=== PATIENT | female | born 1945 | race Caucasian/White ===

== ENCOUNTER 2017-06-28 18:09 | Emergency (ER) | payer BC ==
[~2017-06-28] VITALS: Ht 165.1 cm; Wt 131.5 kg
[~2017-06-28 18:09] MED LIST: AMLO10TA2 PO; ASPI-612 PO; CALC1TAB75 PO; CARV25TA2 PO; CHOL10002 PO; FAMO20TA38 PO; LEVO137T2 PO; LOSA100T6 PO; METF-620 PO; MULT-18 PO; PRAV20TA2 PO; PRAV40TA2 PO
[2017-06-28 18:25] VITALS: BP 143/75
[2017-06-28 19:39] LABS: BASO % 0 % (0-3); EOS % 5 % (0-3); HEMATOCRIT 36.8 % (36.0-47.0); HEMOGLOBIN 12.3 g/dL (12.0-15.5); LYMPH # 1.4 x10^3/uL (1.0-4.8); LYMPH % 21 % (24-48); MEAN CORPUSCULAR HEMOGLOBIN 29 pg (25-35); MEAN CORPUSCULAR HGB CONC 33 g/dL (31-37); MEAN CORPUSCULAR VOLUME 87 fL (79-100); MONO % 8 % (0-9); NEUT % 65 % (31-73); PLATELET COUNT 245 x10^3/uL (140-400); RED BLOOD COUNT 4.26 x10^6/uL (3.50-5.40); RED CELL DISTRIBUTION WIDTH 14.6 % (11.5-14.5); WHITE BLOOD COUNT 6.7 x10^3/uL (4.0-11.0)
[2017-06-28 20:24] LABS: CALCIUM 8.7 mg/dL (8.5-10.1); CREATININE 1.2 mg/dL (0.6-1.0); GFR 44.4; POTASSIUM 3.9 mmol/L (3.5-5.1)
--- NOTE | 2017-06-28 21:50 | ED.ADGEN ---
Past Medical History Past Medical History: Diabetes-Type II, GERD, High Cholesterol, Hypertension, Hypothyroid Additional Past Medical Histor: adrenal tumor Past Surgical History: Appendectomy, Cholecystectomy, Tonsillectomy Additional Past Surgical Histo: hemmorhoidectomy, Alcohol Use: None Drug Use: None Adult General Chief Complaint Chief Complaint: SHORTNESS OF BREATH HPI HPI Patient is a 71 year old woman, history of COPD, hypertension, diabetes, who presents to the emergency department with a complaint of shortness breath. Patient seen by her primary care provider today, at that time she had a 6 on a walk test which she failed. She was given a prescription for an outpatient chest x-ray, which she did not obtain today, patient states she misunderstood the instructions her primary care provider. She states that she was told to have oxygen set up at home at some point soon, but is not currently have any oxygen at home. She states that she was feeling very tired earlier today, did take a nap and is now feeling better. Denies any chest pain, states she is having no shortness breath at rest, states she has a cough is nonproductive occasionally, denies any focal weakness, numbness, tingling, swelling extremities, injuries or other complaints. I did speak with Dr. Shah, who was on-call for the patient's primary care provider, Dr. Simmons. Per records, patient had oxygen saturations dropped to 65 % during ambulatory trial in the office today. Review of Systems Review of Systems Constitutional: Denies fever or chills. [] Eyes: Denies change in visual acuity. [] HENT: Denies nasal congestion or sore throat. [] Respiratory: Denies cough, complaining of shortness of breath. Cardiovascular: Denies chest pain or edema. [] GI: Denies abdominal pain, nausea, vomiting, bloody stools or diarrhea. [] : Denies dysuria. [] Musculoskeletal: Denies back pain or joint pain. [] Integument: Denies rash. [] Neurologic: Denies headache, focal weakness or sensory changes. [] Endocrine: Denies polyuria or polydipsia. [] Lymphatic: Denies swollen glands. [] Psychiatric: Denies depression or anxiety. [] Allergies Allergies Allergies Coded Allergies Type Severity Reaction Last Updated Verified codeine Allergy Mild Nausea and Vomiting 08/04/14 No Physical Exam Physical Exam Constitutional: Well developed, well nourished, no acute distress, non-toxic appearance. [] HENT: Normocephalic, atraumatic, bilateral external ears normal, oropharynx moist, no oral exudates, nose normal. [] Eyes: PERRLA, EOMI, conjunctiva normal, no discharge. [] Neck: Normal range of motion, no tenderness, supple, no stridor. [] Cardiovascular:Heart rate regular rhythm, no murmur, S1, S2, rubs or gallops. [] Lungs & Thorax: Diminished breath sounds at bases bilaterally, no rhonchi or rales identified. No chest wall crepitus or tenderness. Abdomen: Bowel sounds normal, soft, obese, no tenderness, no masses, no pulsatile masses. [] Skin: Warm, dry, no erythema, no rash. [] Back: No tenderness, no CVA tenderness. [] Extremities: No tenderness, no cyanosis, no clubbing, ROM intact, no edema. Negative Homans sign. [] Neurologic: Alert and oriented X 3, normal motor function, normal sensory function, no focal deficits noted. [] Psychologic: Affect normal, judgement normal, mood normal. [] Current Patient Data Vital Signs Vital Signs Date Time Temp Pulse Resp B/P (MAP) Pulse Ox O2 Delivery O2 Flow Rate FiO2 06/28/17 18:25 97.9 71 20 143/75 (97) 97 Room Air 97.9 Lab Values Laboratory Tests Test 06/28/17 19:17 White Blood Count 6.7 x10^3/uL (4.0-11.0) Red Blood Count 4.26 x10^6/uL (3.50-5.40) Hemoglobin 12.3 g/dL (12.0-15.5) Hematocrit 36.8 % (36.0-47.0) Mean Corpuscular Volume 87 fL (79-100) Mean Corpuscular Hemoglobin 29 pg (25-35) Mean Corpuscular Hemoglobin Concent 33 g/dL (31-37) Red Cell Distribution Width 14.6 % (11.5-14.5) H Platelet Count 245 x10^3/uL (140-400) Neutrophils (%) (Auto) 65 % (31-73) Lymphocytes (%) (Auto) 21 % (24-48) L Monocytes (%) (Auto) 8 % (0-9) Eosinophils (%) (Auto) 5 % (0-3) H Basophils (%) (Auto) 0 % (0-3) Neutrophils # (Auto) 4.4 x10^3uL (1.8-7.7) Lymphocytes # (Auto) 1.4 x10^3/uL (1.0-4.8) Monocytes # (Auto) 0.6 x10^3/uL (0.0-1.1) Eosinophils # (Auto) 0.3 x10^3/uL (0.0-0.7) Basophils # (Auto) 0.0 x10^3/uL (0.0-0.2) Sodium Level 137 mmol/L (136-145) Potassium Level 3.9 mmol/L (3.5-5.1) Chloride Level 101 mmol/L (98-107) Carbon Dioxide Level 26 mmol/L (21-32) Anion Gap 10 (6-14) Blood Urea Nitrogen 18 mg/dL (7-20) Creatinine 1.2 mg/dL (0.6-1.0) H Estimated GFR (Cockcroft-Gault) 44.4 Glucose Level 109 mg/dL (70-99) H Calcium Level 8.7 mg/dL (8.5-10.1) Troponin I Quantitative < 0.017 ng/mL (0.000-0.055) LG-Vja-H-Type Natriuretic Peptide 62 pg/mL (0-124) Laboratory Tests 06/28/17 19:17 Laboratory Tests 06/28/17 19:17 EKG EKG EC: Sinus rhythm, heart rate 70 beats/minute, upright axis, QTC of 411, RI 186, QRS of 88, no ST elevations or depressions, no evidence of acute ST abnormalities. As interpreted by me. [] Radiology/Procedures Radiology/Procedures Chest x-ray: PA and lateral: 2 view, patient with mild hyperinflation noted consistent with history of COPD, some tortuosity of the aorta with calcification , normal cardiac silhouette, no infiltrates, no effusions, pneumothorax, no bony abnormalities. As interpreted by me. Course & Med Decision Making Course & Med Decision Making Pertinent Labs and Imaging studies reviewed. (See chart for details) Patient received laboratory studies and imaging in the ED, no acutely concerning findings identified on x-ray, laboratory studies are reveal a concerning findings. However, during attempted ambulatory trial in the ED, patient became short of breath, and stopped the trial orally, oxygen saturation at that point was at around 92%. Patient had ambulated more than 50 feet at that point, which is improved from her previous trial, patient was not able to tolerate even 3 minutes of ambulation. I did discuss with patient that concerns for shortness of breath, and lack of supple oxygen at home or concerns, that she could go home become hypoxic and have an adverse event. Patient stated that she did understand. She was seen by Dr. Woodson of internal medicine in the emergency department, for admission, patient states that she is not able to stay because she has responsibilities at home taking care of her animals. Concerns for the patient's well-being were discussed by Dr. Woodson, myself and nurse Elizabeth. Patient states that she understands the risks of going home, and that she could have episodes of hypoxia, could result in significant morbidity or mortality, however she states she is unable to stay at this time, will follow up with her primary care provider, and states that there arranges being made for her to obtain home O2. After discussion at bedside, patient did sign AGAINST MEDICAL ADVICE, she is awake alert and oriented 3, and does have family at bedside with her. Expressed the patient that she is welcome to return at any time for additional evaluation, encouraged to follow-up as discussed. Dragon Disclaimer Dragon Disclaimer This electronic medical record was generated, in whole or in part, using a voice recognition dictation system. Departure Impression: Primary Impression: Shortness of breath Additional Impression: Hypoxia Disposition: 07 AGAINST MEDICAL ADVICE Condition: STABLE Problem Qualifiers FABY MATIAS DO Jun 28, 2017 21:50
--- NOTE | 2017-06-29 06:16 | EKG ---
[facility] [address] [place] [address] Test Date: 2017-06-28 Test Time: 19:18:02 Pat Name: ROLDAN SCOTT Department: Room: Gender: F Oil Rigger: : [id number] Requested By: FABY MATIAS Order Number: [id number] Reading MD: Measurements Intervals [place] Rate: 70 P: 40 IA: 186 QRS: 13 QRSD: 88 T: 33 QT: 378 QTc: 411 Interpretive Statements SINUS RHYTHM NORMAL ECG RI6.01 No previous ECG available for comparison
--- NOTE | 2017-06-29 08:02 | RAD ---
Indication shortness of air. Hypertension. Frontal and lateral views of the chest were obtained. Comparison is made to an exam 04/27/2014. The heart and pulmonary vessels are normal. The lungs are clear of acute infiltrates. Significant pleural fluid is not present. There is no pneumothorax. IMPRESSION: No acute or focal process is seen in the chest
== END 2017-06-28 22:13 | disposition left against medical advice (07) ==
LOC: ER 18:09
DX: R06.02 Shortness of breath (principal); R09.02 Hypoxemia; E03.9 Hypothyroidism, unspecified; E11.9 Type 2 diabetes mellitus without complications; E78.00 Pure hypercholesterolemia, unspecified; I10 Essential (primary) hypertension; K21.9 Gastro-esophageal reflux disease without esophagitis; J44.9 Chronic obstructive pulmonary disease, unspecified; Z90.49 Acquired absence of other specified parts of digestive tract; Z88.5 Allergy status to narcotic agent
CPT/HCPCS: 36415; 71020; 80048; 83880; 84484; 85027; 93005; 99285-25

== ENCOUNTER → 2017-11-23 | Outpatient (CLI) | payer BC | END | disposition home or self-care (01) | LOC: RT 18:00 | DX: G47.33 Obstructive sleep apnea (adult) (pediatric) (principal) | CPT/HCPCS: 95810 ==

== ENCOUNTER → 2017-12-16 | Outpatient (CLI) | payer BC ==
[2017-12-16 11:26] LABS: ISTAT CREATININE 0.9 mg/dL (0.6-1.1)
[2017-12-16] MEDS: IOHEXOL 300 MG/ML 100ML VIAL. IV (11:54)
== END | disposition home or self-care (01) ==
LOC: KCIC US 10:04
DX: E27.9 Disorder of adrenal gland, unspecified (principal); K76.0 Fatty (change of) liver, not elsewhere classified; K83.8 Other specified diseases of biliary tract
CPT/HCPCS: 74170; 76536; 82565; Q9967

== ENCOUNTER → 2018-04-25 | Outpatient (CLI) | payer BC | END | disposition home or self-care (01) | LOC: KCIC MRI 09:08 | DX: K80.50 Calculus of bile duct without cholangitis or cholecystitis without obstruction (principal); K76.0 Fatty (change of) liver, not elsewhere classified; D35.02 Benign neoplasm of left adrenal gland; I10 Essential (primary) hypertension; E11.9 Type 2 diabetes mellitus without complications; Z79.01 Long term (current) use of anticoagulants | CPT/HCPCS: 74181 ==

== ENCOUNTER → 2018-05-06 | Day surgery (SDC) | payer BC ==
[~2018-05-06] MED LIST changes: -AMLO10TA2 PO; -ASPI-612 PO; -CALC1TAB75 PO; -CARV25TA2 PO; -CHOL10002 PO; +DEXAMETHASONE SOD PHOS 20 MG/5 ML VIAL.; -FAMO20TA38 PO; +FAMOTIDINE 20 MG/2 ML VIAL; +IOHEXOL 300 MG/ML 100ML VIAL.; -LEVO137T2 PO; +LIDOCAINE 1% PF 2 ML VIAL. ID; +LIDOCAINE 2% PF Vial for OR 5 ML VIAL.; -LOSA100T6 PO; -METF-620 PO; -MULT-18 PO; +ONDANSETRON PF 4 MG/2 ML VIAL.; +ONDANSETRON PF 4 MG/2 ML VIAL. IV; -PRAV20TA2 PO; -PRAV40TA2 PO; +PROCHLORPERAZINE 10 MG/2 ML VIAL. IV; +PROPOFOL 20 ML IV; +SUCCINYLCHOLINE 200 MG/10 ML VIAL.; +fentaNYL PF VIAL 100 MCG/2 ML VIAL IV
[2018-05-06] MEDS: IV RINGERS,LACTATED 1000ML 1,000 ML IV (09:41)
[2018-05-06 09:57] LABS: POC GLUCOSE 148 mg/dL (70-99)
[2018-05-06] MEDS: IOHEXOL 300 MG/ML 50 ML VIAL. IV (11:15)
== END | disposition home or self-care (01) ==
LOC: ENDOS 09:10
DX: K80.50 Calculus of bile duct without cholangitis or cholecystitis without obstruction (principal); I10 Essential (primary) hypertension; E11.9 Type 2 diabetes mellitus without complications; E78.00 Pure hypercholesterolemia, unspecified; Z88.5 Allergy status to narcotic agent; D64.9 Anemia, unspecified; K21.9 Gastro-esophageal reflux disease without esophagitis; Z85.850 Personal history of malignant neoplasm of thyroid; Z80.0 Family history of malignant neoplasm of digestive organs; Z87.891 Personal history of nicotine dependence; Z79.82 Long term (current) use of aspirin; Z79.899 Other long term (current) drug therapy; Z90.49 Acquired absence of other specified parts of digestive tract; Z98.890 Other specified postprocedural states; G47.30 Sleep apnea, unspecified; E66.9 Obesity, unspecified; M19.90 Unspecified osteoarthritis, unspecified site; E89.0 Postprocedural hypothyroidism; Z79.84 Long term (current) use of oral hypoglycemic drugs; Z68.43 Body mass index [BMI] 50.0-59.9, adult
CPT/HCPCS: 43262; 74328; 82962; C1726; C1757; J0330; J1100; J2001; J2405; J2704; Q9967; S0028

== ENCOUNTER 2019-03-06 14:34 | Emergency (ER) | payer BC ==
[~2019-03-06] VITALS: Ht 162.6 cm; Wt 136.1 kg
[~2019-03-06 14:34] MED LIST changes: +AMLO10TA8 PO; +ASPI-612 PO; +CALC1TAB75 PO; +CARV25TA2 PO; +CHOL10002 PO; -DEXAMETHASONE SOD PHOS 20 MG/5 ML VIAL.; +FAMO20TA38 PO; -FAMOTIDINE 20 MG/2 ML VIAL; -IOHEXOL 300 MG/ML 100ML VIAL.; +LEVO137T2 PO; -LIDOCAINE 1% PF 2 ML VIAL. ID; -LIDOCAINE 2% PF Vial for OR 5 ML VIAL.; +LOSA100T14 PO; +METF10007 PO; +MULT-18 PO; -ONDANSETRON PF 4 MG/2 ML VIAL.; -ONDANSETRON PF 4 MG/2 ML VIAL. IV; +PRAM0.255 PO; +PRAV20TA2 PO; +PRAV40TA2 PO; -PROCHLORPERAZINE 10 MG/2 ML VIAL. IV; -PROPOFOL 20 ML IV; -SUCCINYLCHOLINE 200 MG/10 ML VIAL.; -fentaNYL PF VIAL 100 MCG/2 ML VIAL IV
[2019-03-06] MEDS ORDERED: TETANUS AND DIPHTHERIA TOX/PF 0.5 ML DISP.SYRIN. VAX IM ONE (15:30)
[2019-03-06] MEDS ORDERED: LIDOCAINE 1% Multi-Dose 20 ML VIAL. INJ ONE (15:30)
--- NOTE | 2019-03-06 15:44 | PHYS DOC ---
Past Medical History Past Medical History: COPD, Diabetes-Type II, GERD, High Cholesterol, Hypertension, Hypothyroid Additional Past Medical Histor: adrenal tumor,SLEEP APNEA Past Surgical History: Appendectomy, Cholecystectomy, Tonsillectomy Additional Past Surgical Histo: hemmorhoidectomy, Alcohol Use: None Drug Use: None Adult General Chief Complaint Chief Complaint: ABSCESS HPI HPI Patient is a 73 year old female who presents with complaining of abscess. Patient is a diabetic patient with morbid obesity and states usually doesn't check her blood sugar. Patient complaining of problem in right gluteal area for 5 years that getting painful for the last 2 weeks with edema and erythema without drainage of pus. She was seen by her primary care physician today and sent to ER for drainage of abscess. Last tetanus immunization is unknown. Patient denies fever and chills, focal neuro deficit, nausea and vomiting. Review of Systems Review of Systems Constitutional: Denies fever or chills [] Eyes: Denies change in visual acuity, redness, or eye pain [] HENT: Denies nasal congestion or sore throat [] Respiratory: Denies cough or shortness of breath [] Cardiovascular: No additional information not addressed in HPI [] GI: Denies abdominal pain, nausea, vomiting, bloody stools or diarrhea [] : Denies dysuria or hematuria [] Musculoskeletal: Denies back pain or joint pain [] Integument: Denies rash, reports abscess Neurologic: Denies headache, focal weakness or sensory changes [] Endocrine: Denies polyuria or polydipsia [] All other systems were reviewed and found to be within normal limits, except as documented in this note. Current Medications Current Medications Current Medications Medications (Trade) Dose Ordered Sig/Lorrie Start Time Stop Time Status Last Admin Dose Admin Lidocaine HCl (Lidocaine 1% 20ml Vial) 20 ml 1X ONCE 03/06/19 15:30 03/06/19 15:32 DC 03/06/19 16:04 20 ML Tetanus/ Diphtheria Toxoids (Tenivac Syringe) 0.5 ml ONCE ONCE 03/06/19 15:30 03/06/19 15:32 DC 03/06/19 16:04 0.5 ML Allergies Allergies Allergies Coded Allergies Type Severity Reaction Last Updated Verified codeine Allergy Mild Nausea and Vomiting 05/06/18 No Physical Exam Physical Exam Constitutional: Well developed, well nourished, mild distress, non-toxic appearance, morbidly obese. [] HENT: Normocephalic, atraumatic Eyes: PERRLA, EOMI, conjunctiva normal, no discharge. [] Neck: Normal range of motion, no tenderness, supple, no stridor. [] Cardiovascular:Heart rate regular rhythm, no murmur [] Lungs & Thorax: Bilateral breath sounds clear to auscultation [] Skin: Warm, dry, no erythema, no rash, 5 x 5 cm abscess with central fluctuation in right gluteal area. [] Back: No tenderness, no CVA tenderness. [] Extremities: No tenderness, no cyanosis, no clubbing, ROM intact, no edema. [] Neurologic: Alert and oriented X 3, normal motor function, normal sensory function, no focal deficits noted. [] Psychologic: Affect normal, judgement normal, mood normal. [] Current Patient Data Vital Signs Vital Signs Date Time Temp Pulse Resp B/P (MAP) Pulse Ox O2 Delivery O2 Flow Rate FiO2 03/06/19 15:48 98.9 72 20 151/71 (97) 97 Room Air 98.9 Lab Values Laboratory Tests Test 03/06/19 15:45 Glucose (Fingerstick) 93 mg/dL (70-99) EKG EKG [] Radiology/Procedures Radiology/Procedures [] Course & Med Decision Making Course & Med Decision Making Pertinent Labs reviewed. (See chart for details) Evaluation of patient in ER showed 73-year-old female patient sent from primary care physician office for right gluteal abscess that was drained in ER and packed with iodoform gauze. Patient was advised to return to emergency room or primary care physician after 48 hours for removing the packing if it not coming out by its own. Dragon Disclaimer Dragon Disclaimer This electronic medical record was generated, in whole or in part, using a voice recognition dictation system. Departure Departure Impression: Primary Impression: Abscess, gluteal, right Additional Impressions: Diabetes mellitus Morbid obesity Disposition: HOME, SELF-CARE (1635) Condition: IMPROVED Referrals: David VELEZ MD (PCP) Patient Instructions: Abscess, Care After, Abscess, Perineal, Community- Associated MRSA Additional Instructions: Change dressing as needed Return to emergency room for removal of the packing in 48 hours Drink plenty of liquids Follow-up with your primary care physician in 3-5 days Return to ER if not getting better Scripts Cephalexin (KEFLEX) 500 Mg Capsule 2 CAP PO Q12HR, #40 CAP Prov: ELIE BLACK MD 03/06/19 Sulfamethoxazole/Trimethoprim (BACTRIM DS TABLET) 1 Each Tablet 1 TAB PO BID for infection, #14 TAB Prov: ELIE BLACK MD 03/06/19 Hydrocodone/Apap 5-325 (NORCO 5-325 TABLET) 1 Each Tablet 1-2 TAB PO Q4-6HRS for pain, #14 TAB Prov: ELIE BLACK MD 03/06/19 Incision and Drainage Indication: abscess Procedure: The patient was positioned appropriately left lateral. Local anesthesia was 5 ml of1% lidocaine. An incision was then made over the apex of the lesion in right gluteal area and moderate amount of pus material was expressed. The drainage cavity was irrigated and packed with sterile gauze. The patients tetanus status updated as needed. The patient tolerated the procedure well. Complications: none. Problem Qualifiers Additional Impressions: Diabetes mellitus Diabetes mellitus type: other specified (including DAVID) Diabetes mellitus roasterman insulin use: unspecified roasterman insulin use status Diabetes mellitus complication status: with unspecified complications Qualified Codes: E13.8 - Other specified diabetes mellitus with unspecified complications ELIE BLACK MD Mar 06, 2019 15:44
[2019-03-06 15:48] VITALS: BP 151/71
[2019-03-06] MEDS ORDERED: CEPH-264 PO (16:40)
[2019-03-06] MEDS ORDERED: SULF1TAB24 PO (16:40)
[2019-03-06] MEDS ORDERED: HYDR-3164 PO (16:40)
== END 2019-03-06 16:50 | disposition home or self-care (01) ==
LOC: ER 14:34
DX: L02.31 Cutaneous abscess of buttock (principal); E11.9 Type 2 diabetes mellitus without complications; E66.01 Morbid (severe) obesity due to excess calories; Z68.43 Body mass index [BMI] 50.0-59.9, adult; J44.9 Chronic obstructive pulmonary disease, unspecified; K21.9 Gastro-esophageal reflux disease without esophagitis; E78.00 Pure hypercholesterolemia, unspecified; I10 Essential (primary) hypertension; E03.9 Hypothyroidism, unspecified; Z90.89 Acquired absence of other organs; Z90.49 Acquired absence of other specified parts of digestive tract; Z88.5 Allergy status to narcotic agent
CPT/HCPCS: 10060; 82962; 90471; 90714; 99283-25

== ENCOUNTER 2019-03-08 09:45 | Emergency (ER) | payer BC ==
[~2019-03-08] VITALS: Ht 162.6 cm; Wt 136.1 kg
[~2019-03-08 09:45] MED LIST changes: +CEPH-264 PO; +HYDR-3164 PO; +SULF1TAB24 PO
[2019-03-08 10:38] VITALS: BP 134/63
--- NOTE | 2019-03-08 10:47 | PHYS DOC ---
Past Medical History Past Medical History: COPD, Diabetes-Type II, GERD, High Cholesterol, Hypertension, Hypothyroid Additional Past Medical Histor: adrenal tumor,SLEEP APNEA (LUCIANO BOO APRN) Past Surgical History: Appendectomy, Cholecystectomy, Tonsillectomy Additional Past Surgical Histo: hemmorhoidectomy, (LUCIANO BOO APRN) Alcohol Use: None Drug Use: None (LUCIANO BOO APRN) Adult General Chief Complaint Chief Complaint: WOUND CHECK HPI HPI Patient is a 73 year old female with history of diabetes, hypertension, high cholesterol, who presents to the ED today for wound check for an abscess that was drained 2 days ago. (LUCIANO BOO APRN) Review of Systems Review of Systems Constitutional: Denies fever or chills [] Musculoskeletal: Denies back pain or joint pain [] Integument: Wound check for an abscess right buttock Neurologic: Denies headache, focal weakness or sensory changes [] All other systems were reviewed and found to be within normal limits, except as documented in this note. (LUCIANO BOO APRN) Allergies Allergies Allergies Coded Allergies Type Severity Reaction Last Updated Verified codeine Allergy Mild Nausea and Vomiting 05/06/18 No (NAOMI MCKNIGHT DO) Physical Exam Physical Exam Constitutional: Well developed, well nourished, no acute distress, non-toxic appearance. [] Skin: Right buttock with an open wound with packing that is soaked. Wound is still draining, there is mild cellulitis surrounding this wound. Packing was removed and another parking placed. Back: No tenderness, no CVA tenderness. [] Extremities: No tenderness, no cyanosis, no clubbing, ROM intact, no edema. [] Neurologic: Alert and oriented X 3, normal motor function, normal sensory function, no focal deficits noted. [] Psychologic: Affect normal, judgement normal, mood normal. [] (LUCIANO BOO APRN) Current Patient Data Vital Signs Vital Signs Date Time Temp Pulse Resp B/P (MAP) Pulse Ox O2 Delivery O2 Flow Rate FiO2 03/08/19 10:38 97.6 68 18 134/63 (86) 95 Room Air 97.6 (NAOMI MCKNIGHT DO) EKG EKG [] (LUCIANO BOO APRN) Radiology/Procedures Radiology/Procedures [] (LUCIANO BOO APRN) Course & Med Decision Making Course & Med Decision Making Pertinent Labs and Imaging studies reviewed. (See chart for details) This is a 73-year-old female patient presenting to the ED today for wound check for an abscess that was drained 2 days ago, packing was removed, wound is still draining, wound was repacked. Patient was discharged home. Return in 2 days for wound check. (LUCIANO BOO APRN) Dragon Disclaimer Dragon Disclaimer This electronic medical record was generated, in whole or in part, using a voice recognition dictation system. (LUCIANO BOO APRN) Departure Departure Impression: Primary Impression: Wound check, abscess Disposition: HOME, SELF-CARE Condition: STABLE Referrals: David VELEZ MD (PCP) Return to the ED in 2 days for wound check Patient Instructions: Wound Check Additional Instructions: We repacked your wound to the right buttock. Please return in 2 days for wound check. Attending Signature Attending Signature I have reviewed the PA/COORDINATOR OF ONLINE PROGRAMS's note and plan of care. I was available for consultation as needed during the patient's visit in the emergency department. I agree with the clinical impression, plan, and disposition. (NAOMI MCKNIGHT DO) LUCIANO BOO APRN Mar 08, 2019 10:47 NAOMI MCKNIGHT DO Mar 09, 2019 11:37
== END 2019-03-08 10:59 | disposition home or self-care (01) ==
LOC: ER 09:45
DX: L02.31 Cutaneous abscess of buttock (principal); L03.317 Cellulitis of buttock; J44.9 Chronic obstructive pulmonary disease, unspecified; E11.9 Type 2 diabetes mellitus without complications; K21.9 Gastro-esophageal reflux disease without esophagitis; E78.00 Pure hypercholesterolemia, unspecified; I10 Essential (primary) hypertension; E03.9 Hypothyroidism, unspecified; Z90.89 Acquired absence of other organs; Z90.49 Acquired absence of other specified parts of digestive tract; Z88.5 Allergy status to narcotic agent
CPT/HCPCS: 99281; 99283

== ENCOUNTER 2019-03-10 11:00 | Emergency (ER) | payer BC ==
[~2019-03-10] VITALS: Ht 162.6 cm; Wt 136.1 kg
[2019-03-10 11:13] VITALS: BP 100/48
--- NOTE | 2019-03-10 11:22 | PHYS DOC ---
Past Medical History Past Medical History: COPD, Diabetes-Type II, GERD, High Cholesterol, Hypertension, Hypothyroid Additional Past Medical Histor: adrenal tumor,SLEEP APNEA Past Surgical History: Appendectomy, Cholecystectomy, Tonsillectomy Additional Past Surgical Histo: hemmorhoidectomy, Alcohol Use: None Drug Use: None Adult General Chief Complaint Chief Complaint: WOUND CHECK HPI HPI Patient is a 73 year old female who presents for wound check and packing removal for an abscess that was drained on 05 March 2019 and repacked 2 days ago. Patient states the draining has slowed down. Review of Systems Review of Systems Constitutional: Denies fever or chills [] Musculoskeletal: Denies back pain or joint pain [] Integument: Wound check Neurologic: Denies headache, focal weakness or sensory changes [] All other systems were reviewed and found to be within normal limits, except as documented in this note. Allergies Allergies Allergies Coded Allergies Type Severity Reaction Last Updated Verified codeine Allergy Mild Nausea and Vomiting 05/06/18 No Physical Exam Physical Exam Constitutional: Well developed, well nourished, no acute distress, non-toxic appearance. [] Skin: Right buttock with an open wound with packing, drainage has slowed down. There is slight erythema around the wound. Packing was removed. Wound was covered. Back: No tenderness, no CVA tenderness. [] Extremities: No tenderness, no cyanosis, no clubbing, ROM intact, no edema. [] Neurologic: Alert and oriented X 3, normal motor function, normal sensory function, no focal deficits noted. [] Psychologic: Affect normal, judgement normal, mood normal. [] Current Patient Data Vital Signs Vital Signs Date Time Temp Pulse Resp B/P (MAP) Pulse Ox O2 Delivery O2 Flow Rate FiO2 03/10/19 11:13 97.9 72 16 100/48 (65) 98 Room Air 97.9 EKG EKG [] Radiology/Procedures Radiology/Procedures [] Course & Med Decision Making Course & Med Decision Making Pertinent Labs and Imaging studies reviewed. (See chart for details) This is a 73-year-old female patient presenting to the ED today for wound check and packing removal from an abscess that we repacked 2 days ago. Draining from the wound has improved. Packing was removed and wound was covered with nonstick dressing. Patient is on antibiotics. Encouraged him to completion. Follow-up with primary care doctor next week. Encourage to change dressing daily. Dragon Disclaimer Dragon Disclaimer This electronic medical record was generated, in whole or in part, using a voice recognition dictation system. Departure Departure Impression: Primary Impression: Wound check, abscess Disposition: 01 HOME, SELF-CARE Condition: STABLE Referrals: David VELEZ MD (PCP) Follow-up next week Patient Instructions: Wound Check Additional Instructions: You were evaluated for wound on the right buttocks. Change the dressing every day and as needed. Continue taking your antibiotics until completed. Follow-up with your doctor next week. LUCIANO BOO CANDY CATCHER Mar 10, 2019 11:22
== END 2019-03-10 11:30 | disposition home or self-care (01) ==
LOC: ER 11:00
DX: Z48.01 Encounter for change or removal of surgical wound dressing (principal); J44.9 Chronic obstructive pulmonary disease, unspecified; E78.00 Pure hypercholesterolemia, unspecified; K21.9 Gastro-esophageal reflux disease without esophagitis; E11.9 Type 2 diabetes mellitus without complications; I10 Essential (primary) hypertension; E03.9 Hypothyroidism, unspecified; Z88.5 Allergy status to narcotic agent
CPT/HCPCS: 99282

== ENCOUNTER 2021-01-21 08:19 | Outpatient (CLI) | payer BC ==
[~2021-01-21] VITALS: Ht 162.6 cm; Wt 136.1 kg
[2021-01-21] VITALS (12 sets, daily range): BP systolic 81–139; BP diastolic 41–62
[~2021-01-21 08:19] MED LIST changes: +AMLO-187 PO; -AMLO10TA8 PO; -ASPI-612 PO; +ASPI-886 PO; +CALC-627 PO; -CALC1TAB75 PO; -LEVO137T2 PO; +LEVO137T44 PO
[2021-01-21] MEDS ORDERED: LIDOCAINE WITH 8.4% SOD BICARB 3 ML DISP.SYRIN. ONE (08:56)
[2021-01-21] MEDS ORDERED: MIDAZOLAM HCL/PF 2 MG/2 ML VIAL. ONE (08:58)
[2021-01-21] MEDS ORDERED: fentaNYL PF VIAL 100 MCG/2 ML VIAL ONE (08:59)
[2021-01-21] MEDS ORDERED: ALBU2.5V8 IH (09:07)
[2021-01-21] MEDS ORDERED: LORA10CA PO (09:07)
[2021-01-21] MEDS ORDERED: TIOT18CA IH (09:07)
[2021-01-21] MEDS ORDERED: DULA0.75 SQ (09:07)
[2021-01-21] MEDS ORDERED: VIT1TABL34 PO (09:07)
[2021-01-21] MEDS ORDERED: PIOG15TA42 PO (09:07)
[2021-01-21 09:23] LABS: BASO % 1 % (0-3); EOS # 0.2 x10^3/uL (0.0-0.7); EOS % 4 % (0-3); HEMATOCRIT 37.1 % (36.0-47.0); HEMOGLOBIN 12.1 g/dL (12.0-15.5); LYMPH % 18 % (24-48); MEAN CORPUSCULAR HEMOGLOBIN 28 pg (25-35); MEAN CORPUSCULAR HGB CONC 33 g/dL (31-37); MEAN CORPUSCULAR VOLUME 86 fL (79-100); MONO # 0.5 x10^3/uL (0.0-1.1); MONO % 8 % (0-9); NEUT % 69 % (31-73); PLATELET COUNT 234 x10^3/uL (140-400); RED BLOOD COUNT 4.31 x10^6/uL (3.50-5.40); RED CELL DISTRIBUTION WIDTH 15.2 % (11.5-14.5); WHITE BLOOD COUNT 5.8 x10^3/uL (4.0-11.0)
[2021-01-21 09:30] LABS: PROTHROMBIN TIME PATIENT 13.9 SEC (11.7-14.0)
[2021-01-21] MEDS ORDERED: MIDAZOLAM HCL/PF 2 MG/2 ML VIAL. IV ONE (09:30)
[2021-01-21] MEDS ORDERED: fentaNYL PF VIAL 100 MCG/2 ML VIAL IV ONE (09:30)
[2021-01-21] MEDS ORDERED: LIDOCAINE WITH 8.4% SOD BICARB 3 ML DISP.SYRIN. IJ ONE (09:30)
--- NOTE | 2021-01-21 12:35 | NUR ---
Discharge Note: ROLDAN SCOTT Discharge instructions and discharge home medications reviewed with Patient and a copy given. All questions have been answered and understanding verbalized. Dressing site remains clean and dry The following instructions and handouts were given: moderate sedation, lung biopsy Discontinued lines and drains: Peripheral IV intact. Patient discharged to Home or Self Care with Family Member via Wheelchair COLLEEN BURKETT Addendum: 01/21/21 at 1249 by MELISSA ROY RN Amended: Links added.
--- NOTE | 2021-01-21 12:43 | RAD ---
01/21/2021 10:38 AM Procedure: CT-guided biopsy, lingular mass Clinical Indication: Bilateral lung masses Discussion: The procedure was explained in its entirety to the patient or the patients designated packaging sales representative by a member of the treatment team, including a discussion of the risks, benefits and commonly accepted alternatives to the procedure, as well as the expected consequences of no therapy whatsoever. Discussion of the risks included, but was not limited to, those that are most frequent and those that are rare but possibly severe or life-threatening, as well as the possibility of unforeseen complications. All elements of maximal sterile barrier technique including the use of a cap, mask, sterile gown, sterile gloves, large sterile sheet, appropriate hand hygiene, and 2% chlorhexidine for cutaneous antisepsis (or acceptable alternative antiseptic per current guidelines) were followed for this procedure. Placement supine position. A timeout procedure was performed. The anterior chest prepped and draped using sterile barrier technique. 1% lidocaine was administered for local anesthesia. CT demonstrates lingular opacity, similar to comparison exam. Under intermittent CT guidance a 17-gauge needle was advanced into the mass. Core biopsies were obtained. Patchy after 2 passes the patient began to experience mild hemoptysis. The needle was removed. Repeat CT demonstrates mild perilesional hemorrhage. No pneumothorax is seen. Patient was transferred to the recovery area in stable condition. The procedures performed under conscious sedation including continuous cardiopulmonary monitoring via dedicated sedation nurse. [id number] sedation time: 20 minutes Impression: CT-guided biopsy, a lingular mass PQRS Compliance Statement: One or more of the following individualized dose reduction techniques were utilized for this examination: 1. Automated exposure control 2. Adjustment of the mA and/or kV according to patient size 3. Use of iterative reconstruction technique
--- NOTE | 2021-01-21 18:13 | RAD ---
EXAM: XR CHEST 1V INDICATION: Reason: post lung biopsy L / Spl. Instructions: / History: . TECHNIQUE: Single view COMPARISON: Chest x-ray of 06/28/[address] lung biopsy of 01/21/2021, earlier the same day FINDINGS: The heart size is normal. The great vessels appear unremarkable. There is no hilar or mediastinal mass. Lungs are hypoventilatory. Nodular opacity in the left midlung measures 3 cm is new from the previous chest x-ray but is compatible with residua of the targeted nodule for biopsy and associated postbiop sy changes. There is mild left basilar atelectasis. There is no pleural effusion or pneumothorax. There are no significant osseous abnormalities. IMPRESSION: Postbiopsy changes in the left lung with no pneumothorax identified. Electronically signed by: Amy Mooney MD (01/21/2021 6:11 PM) [id number]
--- NOTE | 2021-01-23 20:36 | PATHOLOGY ---
[facility] Accession Number: [id number] . 01 Material submitted: . lung - LEFT LUNG MASS CORE BIOPSY. Modifiers: left . 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 See comment. (JPM:nba; 01/23/2021) QMS 01/23/2021 1805 Local . 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 There are scattered lymphoid nodules comprised of small lymphocytes having rounded to slightly irregular nuclei. Some of the lymphoid nodules have germinal centers containing tingible body macrophages. The internodular areas show a prominent proliferation of plasma cells containing scattered Ladarius bodies. There are also areas of stromal sclerosis within the internodular areas. There is no evidence of epithelial malignancy. A panel of immunoperoxidase stains and in situ hybridization for kappa and lambda light chain are obtained on block A2 and yield the following results: . CD20: Lymphocytes of lymphoid nodules positive. PAX-5: Lymphocytes of lymphoid nodules positive. CD3: Small population of lymphocytes within lymphoid nodules and internodular areas positive. CD5: Small population of lymphocytes positive in a distribution similar to CD3. CD23: Dendritic cells within germinal centers of lymphoid follicles positive. CD10: Germinal center lymphocytes positive. BCL2: Lymphoid cells of germinal centers negative; small lymphocytes surrounding germinal centers and small lymphocytes of lymphoid nodules and internodular areas positive. BCL6: Germinal center lymphocytes positive. [place] D1: Small lymphocytes negative. CD138: Internodular plasma cells positive. [place] and lambda NATASHA: Plasma cells appear polyclonal. . 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 The case is also examined by Dr. Espinoza, who concurs with the diagnosis on 01/23/21. The results are reported to Dr. Salas on 01/23/2021. . (JPM:nba; 01/23/2021) . Special stains performed: Immunoperoxidase stains for CD20, PAX-5, CD3, CD5, CD10, BCL2, CD23, BCL6, cyclin D1, CD138 all on A2, and in situ hybridization for kappa and lambda light chain on A2. . 02 Electronically signed: . Lefty Dave MD, Pathologist NPI- [id number] . 01 Gross description: . The specimen is received in formalin, labeled "Chanell Lopez, left lung mass". Received are two needle cores of pale ortiz soft tissue ranging in length from 1.0 to 1.4 cm in length by 0.1 cm in diameter. The specimen is submitted entirely in cassette A1 and A2. (CAA; 01/21/2021) QAC/QA 01/21/2021 1623 Local . 02 Pathologist provided ICD-10: J98.4, R91.8 . 02 CPT . 076169, P73405, F25349, J96051, M80501 Specimen Comment: Report sent to / Specimen Comment: A duplicate report has been generated due to demographic updates. Performed at: 01 [facility] [address] [id number] MD Ky Guerrero MD Phone: [phone] Performed at: 02 [facility] [address] [place], [place] [id number] MD Lefty Dave MD Phone: [phone]
== END 2021-01-21 12:35 | disposition home or self-care (01) ==
LOC: INTRAD 08:19
PROVIDERS: ATTEND Internal Medicine Pulmonary Disease
DX: R91.8 Other nonspecific abnormal finding of lung field (principal); I10 Essential (primary) hypertension; E78.00 Pure hypercholesterolemia, unspecified; G47.30 Sleep apnea, unspecified; E66.9 Obesity, unspecified; K21.9 Gastro-esophageal reflux disease without esophagitis; M19.90 Unspecified osteoarthritis, unspecified site; E03.9 Hypothyroidism, unspecified; E11.9 Type 2 diabetes mellitus without complications; Z79.899 Other long term (current) drug therapy; Z79.84 Long term (current) use of oral hypoglycemic drugs; Z98.890 Other specified postprocedural states; Z87.891 Personal history of nicotine dependence; Z79.82 Long term (current) use of aspirin; Z88.5 Allergy status to narcotic agent; Z20.822 Contact with and (suspected) exposure to COVID-19
CPT/HCPCS: 32408; 36415; 71045; 85025; 85610; 87426; 99152; J2250; J3010; J3490; U0003; 88305; 88341; 88342; 88364; 88365; C9803

== ENCOUNTER → 2021-04-18 | Outpatient (CLI) | payer BC ==
[2021-01-21 12:20] VITALS: BP 106/41
[~2021-04-18] MED LIST changes: +ALBU2.5V8 IH; +DULA0.75 SQ; +LORA10CA PO; +PIOG15TA42 PO; +TIOT18CA IH; +VIT1TABL34 PO
[2021-04-18] MEDS: IOHEXOL 300 MG/ML 100ML VIAL. IV ONE (11:12)
--- NOTE | 2021-04-18 13:28 | KCIC ---
EXAM: Abdomen CT with and without intravenous contrast. HISTORY: Adrenal nodule follow-up. TECHNIQUE: Computed tomographic images of the abdomen were obtained prior to and following the admini stration of intravenous contrast. Multiplanar reformatting was performed. *One or more of the following individualized dose reduction techniques were utilized for this examina tion: 1. Automated exposure control. 2. Adjustment of the mA and/or kV according to patient size. 3. Use of iterative reconstruction technique. COMPARISON: MRCP dated 04/25/[address] dated 12/16/2017. FINDINGS: Evaluation of the lower thorax demonstrates a 9 mm nodule within the left lower lobe, new c ompared to the prior exam. There is a 3 mm nodule within the lingula with adjacent groundglass opacit y likely due to atelectasis or scarring. There is a 10 mm nonspecific groundglass opacity abutting th e pleura of the lateral right lung base. There is no pleural effusion. There is hepatomegaly and hepatic steatosis. No focal hepatic lesion is seen. The gallbladder is abse nt. There is common bile duct dilatation likely due to reservoir effect status post cholecystectomy. The pancreas, spleen and stomach are unremarkable. There is stable nodular thickening of the ashley of the left adrenal gland, measuring approximately 2.0 cm. The kidneys are unremarkable. There is no bowel obstruction or abnormal bowel wall thickening. There is calcified scar plaque involving the aorta and main aortic branch vessels. There is no lymphadenopa thy. There is no suspicious osseous lesion. There are degenerative changes throughout the thoracolumb ar spine. IMPRESSION: 1. Stable nodular thickening of the left adrenal gland or benign adrenal adenoma measuring 2.0 cm. 2. Hepatomegaly and hepatic steatosis. 3. Biliary ductal dilatation. This is further characterized on an MRCP dated 04/25/2018. 4. 9 mm left lower lobe pulmonary nodule. There is also a 3 mm nodule within the lingula at 10 mm killian undglass opacity within the lateral right lung base. In the absence of more recent chest CT exams to confirm stability, follow-up in 3 months is recommended. Electronically signed by: Nelia Cheng MD (04/18/2021 1:25 PM) [id number]
== END ==
LOC: KCIC CT 09:58
PROVIDERS: ATTEND Internal Medicine
DX: E27.8 Other specified disorders of adrenal gland (principal); R91.1 Solitary pulmonary nodule; K76.0 Fatty (change of) liver, not elsewhere classified; R16.0 Hepatomegaly, not elsewhere classified
CPT/HCPCS: 74170; 82565; Q9967